=== PATIENT | male | born 1960 | race Caucasian/White ===

== ENCOUNTER 2016-10-05 23:34 | Inpatient (IN) | payer MEDICARE ==
--- NOTE | ~2016-10-05 | DS ---
Unit #: [id number] #: [id number] Patient: KAMAR HERR [id number] [address] [place], [place] [address] [id number] I MR#: [id number] NAME: KAMAR HERR. ROOM: 333 Age: 56 Sex: M Admission Date: 10/06/2016 : 1960 Discharge Date: 10/09/2016 Attending Physician: Cedric Cartwright M.D. Primary Care Physician: Domo Cuello M.D. DISCHARGE SUMMARY PRINCIPAL DISCHARGE DIAGNOSES 1. Right frontal scalp abscess with methicillin-sensitive Staphylococcus aureus. 2. Status post incision and drainage of right frontal scalp abscess on 10/07/16. 3. 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 4. Hypothyroidism. 5. Hyponatremia. 6. Chronic low back pain. 7. History ofd hepatitis C. 8. Status post splenectomy. 9. Gastroesophageal reflux disease. 10. Hypertension. 11. Generalized anxiety disorder. 12. Osteoarthritis. 13. Hyperlipidemia. 14. History of alcohol abuse. PROCEDURES 1. PICC line placement 10/06/16. 2. I/D of right scalp abscess of 10/07/16. CONSULTANTS 1. [facility]. 2. Dr Lara. 3. Dr. Mcknight. REASON FOR HOSPITALIZATION The patient is a 56-year-old white male with a history of type 2 diabetes mellitus, peripheral neuropathy, chronic low back pain, hypertension, hyperlipidemia, hypothyroidism, previous splenectomy following trauma, history of hepatitis C, history of alcohol abuse, presented to the emergency room with a rapidly expanding right scalp abscess following an insect bite. He was afebrile. White count was quite elevated at 19.8. Sodium was low on admission at 129, blood sugar was 425 and the patient was admitted. HOSPITAL COURSE The patient was admitted to a regular bed. He was started on IV antibiotics. PICC line was placed for IV access. He was placed on Zosyn and vancomycin. I/D was consulted. [facility] was consulted. He underwent I/D on the , tolerated well, found to have Unit #: [id number] #: [id number] Patient: KAMAR HERR methicillin-sensitive Staphylococcus aureus. Antibiotics adjusted appropriately. Seen by Dr. Lara for pain control. Dressing changes were instituted. Patient refused VNA and was taught dressing changes himself which he said he had a live-in girlfriend that could take care of that. He was discharged home on the on a constant carb diet. He was to follow up with [facility] in three weeks. He was to follow up with his primary care physician in one week although he was just fired from his primary care physician. He was given the number for referral to a [facility]. His PICC line was discontinued. DISCHARGE MEDICATIONS 1. He was discharged home with a prescription for Keflex 500 mg one p.o. q.i.d. #44 for a full 14 day course per ID recommendations. He is also on: 2. Synthroid 88 mcg daily. 3. Protonix 40 mg daily. 4. OxyContin 30 mg b.i.d. 5. Oxycodone 10 mg b.i.d. p.r.n. 6. Lantus 45 units subcu b.i.d. 7. Humalog sliding scale a.c. and h.s. 8. Zestril 40 mg daily. 9. Lipitor 40 mg daily. 10. Colace 100 mg b.i.d. 11. Klonopin 1 mg p.o. q.h.s. p.r.n. for insomnia. 12. Lyrica 300 mg p.o. b.i.d. Dictated by... Nick Tierney M.D. PAT/ivelisse TD: 10/27/2016 16:18 JOB #: [id number] DISCHARGE SUMMARY Page 1 of 1 X Nick Tierney MD X DISCHARGE SUMMARY
--- NOTE | ~2016-10-05 | HP ---
Unit #: [id number] #: [id number] Patient: KAMAR HERR [id number] [address] [address] [id number] I MR#: [id number] NAME: KMAAR HERR. ROOM: 333 Age: 56 Sex: M Admission Date: 10/06/2016 : 1960 Attending Physician: Cedric Cartwright M.D. Primary Care Physician: Domo Cuello M.D. HISTORY AND PHYSICAL HISTORY OF PRESENT ILLNESS A 56-year-old white male with a history of chronic kidney disease, splenectomy, insulin-requiring type 2 diabetes mellitus, chronic low back pain, hypothyroidism, hypertension, generalized anxiety disorder, alcohol abuse, hepatitis C, gastroesophageal reflux disease, peripheral neuropathy, and hyponatremia, last admitted here in 2014 with community-acquired pneumonia, sepsis, and acute kidney injury, presented to the emergency room with four days of right frontal scalp abscess following an insect bite, insect not seen but felt and apparently crushed. Patient had a rapidly evolving abscess. He has already been seen by Infectious Disease and Surgery, started on vancomycin and Zosyn, and scheduled for surgery in the morning. Currently, he is awake, alert, oriented x3, and in no acute distress but complaining of some anxiety. Medication reconciliation has not been performed, so I have no idea what he is taking at home, and the patient is unaware. He apparently has had some issues with Dr. Cuello's office, his primary care physician, and has been discharged from their care, but has not found a new physician yet. In any case, he is being admitted for further evaluation and treatment for his right scalp abscess. PAST MEDICAL HISTORY 1. 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 2. Hypertension. 3. Hyperlipidemia. 4. Hypothyroidism. 5. Generalized anxiety disorder. 6. Hepatitis C. 7. Gastroesophageal reflux disease. 8. Chronic low back pain. 9. Generalized osteoarthritis. 10. Alcohol abuse. PAST SURGICAL HISTORY 1. Spinal fusion at L4-5. 2. Cholecystectomy. 3. Right rotator cuff repair. 4. Left total knee replacement. 5. Multiple ventral hernia repairs. 6. Traumatic splenectomy. ALLERGIES No known medical allergies. Unit #: [id number] #: [id number] Patient: KAMAR HERR MEDICATIONS Completely unknown at this point, although he is still taking insulin according to himself and has not run out of his medicines. At discharge two years ago in December 2014 he was on Lyrica 300 mg p.o. b.i.d., Klonopin 0.5 at bedtime p.r.n. for insomnia, Lopressor 50 mg b.i.d., Levemir 40 units subcutaneous b.i.d., OxyContin 30 mg p.o. b.i.d., Protonix 40 mg daily, Synthroid 100 mcg daily, and Humalog 15 units a.c. with meals. SOCIAL HISTORY Disabled, single, nonsmoker. Drinks six to eight beers three to four times weekly. No street drug use. FAMILY HISTORY Noncontributory. PHYSICAL EXAMINATION GENERAL: He is awake, alert, oriented x3, and in no acute distress. VITAL SIGNS: Afebrile since admission and on admission, pulse 77, respirations 16, blood pressure 152/82, and O2 saturation 99% on room air. HEENT: Unremarkable except for a golf ball size abscess which is open and draining. It has a 1 cm open area with purulent discharge and bleeding. NECK: Supple without any JVD, bruits, adenopathy, or thyromegaly. CHEST: Clear to auscultation. HEART: Regular rate and rhythm without any murmurs, rubs, or gallops. ABDOMEN: Soft, nondistended, and nontender, with positive bowel sounds and no hepatosplenomegaly. EXTREMITIES: No clubbing, cyanosis, or edema. GENITOURINARY/RECTAL: Deferred. NEUROLOGIC: Grossly intact. DIAGNOSTIC STUDIES LABORATORY: PT and PTT within normal limits. White count 19.8 with a left shift, hemoglobin 13, and platelets 443,000. CPK total was normal. Sodium was low at 129, blood sugar was 425, and alkaline phosphatase 121. Urinalysis greater than 1000 mL of glucose. Urine drug screen positive for opiates which of course the patient is on at home. IMPRESSION 1. Right scalp frontal area abscess per insect bite. 2. Insulin-requiring type 2 diabetes mellitus with peripheral neuropathy and history of nephropathy. 3. Hyperglycemia. 4. Hyponatremia. 5. Hypothyroidism. 6. Chronic low back pain. 7. Status post splenectomy following trauma. 8. History of hepatitis C. 9. Gastroesophageal reflux disease. 10. Hypertension. 11. Hyperlipidemia. 12. Generalized anxiety disorder. 13. Osteoarthritis. 14. Alcohol abuse. 15. Status post spinal fusion. 16. Status post cholecystectomy. PLAN Unit #: [id number] #: [id number] Patient: KAMAR HERR Continue current IV antibiotics. Will start lower extremity SCDs for DVT prophylaxis as he is scheduled for surgery in the morning. Will check his A1c and follow with sliding scale insulin. Try to get a medication reconciliation on his chart so I can review and resume. For now, use Xanax 0.25 t.i.d. p.r.n. for anxiety. He already has pain medicine ordered intravenously. Apparently, cultures were sent, but he had no CT scan or other x-rays of his skull in the ER, and I am not sure this is actually necessary at this point. A PICC line has been placed for better access. Further evaluation pending results of the above. Dictated by Nick Tierney M.D. PAT/darryl TD: 10/06/2016 19:45 JOB #: [id number] HISTORY AND PHYSICAL Page 1 of 1 X Nick Tierney MD X HISTORY AND PHYSICAL
--- NOTE | ~2016-10-05 | CO ---
Unit #: [id number] #: [id number] Patient: KAMAR HERR [id number] [place] [address] [facility]. [place], [place] [address] [id number] I MR#: [id number] NAME: KAMAR HERR. ROOM: 333 Age: 56 Sex: M Admission Date: 10/06/2016 : 1960 Attending Physician: Cedric Cartwright M.D. Primary Care Physician: Domo Cuello M.D. Consultation Date: 10/06/2016 CONSULTATION REPORT REASON FOR CONSULTATION Facial cellulitis and abscess. HISTORY OF PRESENT ILLNESS This is a 56-year-old gentleman with a history of uncontrolled diabetes, who was admitted with abscess on the right forehead, which started 3 to 4 days ago. It gradually progressed leading to more pain and redness and fever. He was hospitalized and found to have abscess. He was started on IV antibiotics and ID was consulted for further evaluation. The patient is currently stable. He is wide awake and alert, does not have any headache, but there is a facial pain at the site of an abscess. He denies any recent surgery, injury, or any puncture wounds in that area. He thinks he may have been bit by some insects, but he did not see the insect. He is currently on vancomycin and Zosyn. PAST MEDICAL HISTORY Type 2 diabetes with nephropathy and neuropathy, hypertension, hyperlipidemia, hypothyroidism, anxiety, hepatitis C, GERD, chronic back pain, alcohol abuse, and osteoarthrosis. PAST SURGICAL HISTORY Spinal fusion at L4-5, cholecystectomy, right rotator cuff repair, total knee replacement, ventral hernia repairs, and traumatic splenectomy. ALLERGIES None. HOME MEDICATIONS Reviewed. As far as antibiotics are concerned, he is on vancomycin and Zosyn. SOCIAL HISTORY He is disabled, single, nonsmoker. Drinks beer on a daily basis. No history of street drugs. FAMILY HISTORY Noncontributory. SYSTEMIC REVIEW Right frontal and parietal abscess with pain and redness in that area. Minimum drainage. There is no internal headache. There was some fever, but no chills. No cough, dysuria, abdominal pain, nausea, vomiting, or diarrhea. Unit #: [id number] #: [id number] Patient: KAMAR HERR PHYSICAL EXAMINATION GENERAL: Reveals middle-aged white male, who is awake and alert, in no acute distress. VITAL SIGNS: Stable. Temperature is 98, heart rate 80, respirations 18, blood pressure 150/80. HEENT: There is a 4 to 5 cm exuberant abscess and carbuncle on the right frontoparietal area. This looks necrotic area with surrounding cellulitis. No obvious drainage was noted. Oral hygiene is poor. NECK: Supple. There is no JVD or edema. LUNGS: Clear to percussion and auscultation. HEART: Sounds are normal. There are no murmurs. ABDOMEN: Obese, soft, nontender without organomegaly or ascites. Bowel sounds normal. NEUROLOGIC: Nonfocal. DIAGNOSTIC STUDIES LABORATORY RESULTS: White count is 19.8, hemoglobin 13, and platelets 443. Sodium 129, potassium 4, chloride 92, CO2 of 25, BUN 12, creatinine 0.7, glucose 425. Liver function tests are normal. Urinalysis shows glucosuria. There are no white cells. Drug screen positive for opiates. Cultures are pending. IMPRESSION Uncontrolled diabetes with right frontal temporal abscess and carbuncle with cellulitis likely Staph aureus. RECOMMENDATIONS I agree with vancomycin and Zosyn for now. The patient will need surgical debridement, therefore, I will consult Surgical Team. For the time being, we will continue same antibiotics and adjust once culture results are known. Further recommendation will follow. Dictated by... Melina Huerta/doug TD: 10/09/2016 23:29 JOB #: [id number] CONSULTATION REPORT Page 1 of 1 X Magdy Mcknight MD CONSULTATION REPORT
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
--- NOTE | ~2016-10-05 | A ---
[facility] Nutrition Therapy DATE: 10/07/16 Patient: KAMAR HERR Physician: EVER Address: [address] [facility] Room/Bed: [address] [place] [address], Zip: [place] [phone] Admit Date: 10/06/16 Date of : 56 Height: 5 10 Weight: 185 84 NUTRITIONAL ASSESSMENT: REASON: Diet Education 56 y/o male admitted for spider bite/facial cellulitis PMH: DM, hyperthyroidism, ETOH abuse Anthropometrics: 5'10", 185# (84 kg), BMI 30 Assessment: Chart reviewed, events noted. Mr. Herr is a pleasant 56 y/o with a PMH of T2DM. RD product marketing intern spoke with pt at bedside. Pt reports actively monitoring his diabetes, checking his blood sugar 3 x day. He states that he can tolerate eating a lot of carbs without having high sugars, but still tries hard to eat a healthy diet and have [address] RD product marketing intern provided written and verbal education on T2DM nutrition therapy and carbohydrate counting. RD product marketing intern encouraged pt to eat a consistent amount of carbs with each meal, and to not skip meals. Pt voiced several questions regarding how to avaoid hypoglycemic episodes and asked for ideas for healthy meals. RD product marketing intern addressed all questions. RD will remain available. Intervention: 1. Diabetic diet education Recommendations: 1. Remain compliant with consistent carbohydrate/diabetic diet. Respectfully, BAUTISTA LIM, product marketing intern Kathleen Morrissey RD, [facility] [facility] cc: client file
--- NOTE | ~2016-10-05 | OR ---
Unit #: [id number] #: [id number] Patient: KAMAR HERR [id number] [address] [address] [id number] I MR#: [id number] NAME: KAMAR HERR ROOM: [facility] Date of Procedure: 10/07/2016 Admission Date: 10/06/2016 Surgeon: Camilo Lomas III, M.D. : 1960 Attending Physician: Cedric Cartwright M.D. Primary Care Physician: Domo Cuello M.D. OPERATIVE REPORT ADDENDUM PREOPERATIVE DIAGNOSIS 5 cm necrotic abscess of the right temporal region. POSTOPERATIVE DIAGNOSIS 5 cm necrotic abscess of the right temporal region. PROCEDURE PERFORMED Sharp excisional debridement of 5 cm right temporal abscess. ANESTHESIA General. SPECIMEN Cultures and tissue sent to Pathology. COMPLICATIONS None apparent. ESTIMATED BLOOD LOSS Minimal. INDICATIONS FOR PROCEDURE This is a 56-year-old gentleman who has sustained some type of bite from an insect or spider in the right temporal region over the preceding 4 days, it has progressively enlarged and developed a necrotic. DICTATION ENDS HERE. Dictated by... Camilo Lomas III, M.D. VCL/modl TD: 10/08/2016 08:38 JOB #: [id number] Unit #: [id number] #: [id number] Patient: KAMAR HERR OPERATIVE REPORT Page 1 of 1 X Camilo Lomas III, MD PROCEDURE OPERATIVE NOTE
--- NOTE | ~2016-10-05 | OR ---
Unit #: [id number] #: [id number] Patient: KAMAR HERR [id number] [address] [place], [place] [address] [id number] I MR#: [id number] NAME: KAMAR HERR ROOM: [facility] Date of Procedure: 10/07/2016 Admission Date: 10/06/2016 Surgeon: Camilo Lomas III, M.D. : 1960 Attending Physician: Cedric Cartwright M.D. Primary Care Physician: Domo Cuello M.D. OPERATIVE REPORT CONTINUATION DESCRIPTION OF PROCEDURE After consent was obtained, the patient was brought to the operating room and placed in the supine position. General anesthetic was administered. His right temporal region was prepped and draped in standard surgical fashion. I sharply excised all the necrotic tissue and the perimeter ended up being 4 x 5 cm. I debrided this back to healthy tissue. I irrigated this wound and packed it with Betadine-soaked Kerlix gauze. Sterile dressing was then applied over that. He tolerated the procedure without any problems and returned to the recovery room in stable condition. Dictated by... Camilo Lomas III, M.D. VCL/doug TD: 10/08/2016 08:34 JOB #: [id number] OPERATIVE REPORT Page 1 of 1 X Camilo Lomas III, MD PROCEDURE OPERATIVE NOTE
--- NOTE | ~2016-10-05 | XA166 ---
[facility] A Service of [facility] & [facility] RADIOLOGY TEXT RESULTS PATIENT: KAMAR HERR [facility]- : 56 UNIT #: [id number] AGE: [address]: Cedric Cartwright MD SEX: M ORDER DR: [id number] [facility] [address] [facility]. [place], [place] [address] [id number] I MR#: [id number] Acc #: [id number] NAME: KAMAR HERR. : 1960 SEX: M STUDY DATE/TIME: 10/06/2016 14:08 UNIT: C3A U ROOM: [facility] STUDY DESCRIPTION: XA PICC Line Placement WO Port Attending Physician: Cedric Cartwright M.D. Ordering Physician: Josefa Peterson M.D. Primary Care Physician: Domo Cuello M.D. MEDICAL IMAGING REPORT This report is preliminary unless electronic signature is present EXAM Line placement under ultrasound fluoroscopy HISTORY Long-term IV access for antibiotic therapy PRE-PROCEDURE The procedure was explained to the patient and/or patient congressional representative including risks, benefits, potential complications and potential for alternative forms of treatment. Informed consent was obtained, and prior to initiating the procedure a formal timeout procedure was performed. PROCEDURE Using full standard sterile barrier technique, including caps, gowns, gloves, masks, as well as sterile skin preparation and standard sterile draping, the left arm was prepped and draped in the usual fashion, and real-time sterile ultrasound guidance was used to localize an arm vein and to confirm vessel patency. A hard copy ultrasound image was recorded. After local anesthesia with 1% Xylocaine, the vein was punctured using real-time sterile ultrasound guidance, and an 0.018 guidewire was advanced into the superior vena cava, using fluoroscopic guidance. A 5-Norwegian dual-lumen PICC was then measured and deployed with the tip positioned in the superior vena cava. Trim length is 37 cm The position of the line was documented with a radiographic image. The line was secured in place with an adhesive dressing and an antibiotic patch was applied. Total fluoro time was __ minutes. A single fluoroscopic spot image was obtained. IMPRESSION 1. Successful placement of a 5-Norwegian dual-lumen PowerPICC via the left arm under ultrasound and fluoroscopic guidance. The tip of the PICC is in good position in the superior vena cava. 2. A single fluoroscopic spot image was obtained. [facility] A Service of [facility] & [facility] RADIOLOGY TEXT RESULTS PATIENT: KAMAR HERR LOCATION: [facility] 333-01 : 56 UNIT #: [id number] AGE: [address]: Cedric Cartwright MD SEX: M ORDER DR: Exposure: 2 mGy air kerma Fluoroscopy time: 0.2 minutes. A single spot radiograph was obtained. The puncture is in the left basilic vein. Dictated by... Tyshawn Khanna M.D. THIS IS AN ELECTRONICALLY VERIFIED REPORT Tyshawn Khanna M.D. at 10/08/2016 7:14 AM KAMILLE/karen TD: 10/06/2016 17:15 JOB #: [id number] MEDICAL IMAGING REPORT Page 1 of 1 COPY
[~2016-10-05 23:34] MED LIST: ACETAMINOPHEN325 MG PO; ACETAMINOPHEN650 M1 PO; ALPRAZOLAM PO; AMBIEN PO; AMBIEN10 MG; AMBIEN10 MG PO; BACTRIM DS TABL1 TA1 PO; BACTRIM DS TABL1 TAB PO; BENICAR PO; BYETTA10 MCG/0.0 INJ; CECLOR500 MG PO; CIPRO PO; COLACE PO; CRESTOR PO; DIAZEPAM PO; DIAZEPAM10 MG PO; EFFER-K 10 MEQ10 MEQ; FISH OIL 1,0001 CAP PO; FLEXERIL PO; FLEXERIL10 M1 PO; FLEXERIL10 MG PO; GLIPIZIDE10 MG/BOTT PO; GLUCOTROL XL PO; HALCION PO; HUMALOG INSULIN SUBQ; HUMALOG100 U/M2 SQ; HUMALOG100 U/ML SUBQ; HYDROCODON-ACE1 EAC4 PO; HYDROCODON-ACE1 EAC5 PO; K-DUR10 MEQ PO; KCL PO; KEFLEX PO; KEFLEX500 M1 PO; KLONOPIN0.5 MG PO; LEVAQUIN250 MG PO; LEVEMIR; LEVEMIR FLEX PEN; LEVEMIR INSULIN SQ; LEVEMIR SUBQ; LEVEMIR100 U/ML; LEVEMIR100 U/ML SQ; LEVEMIR100 U/ML SUBQ; LEVOTHROID25 MCG PO; LIPITOR PO; LISINOPRIL PO; LOPRESSOR PO; LORTAB 7.5-5001 TAB PO; LYRICA; LYRICA PO; LYRICA300 MG PO; LYRICA75 MG PO; MEPHYTON5 MG PO; METOPROLOL PO; METOPROLOL SUCC50 MG PO; MILK THISTLE500 MG PO; MOBIC PO; MOBIC15 MG PO; MULTI-DAY VITAM1 TAB PO; MULTIPLE VITAMI1 T12 PO; NOVOLOG100 U/M3; NOVOLOG100 U/ML; NOVOLOG100 UNITS/ INJ; NUCYNTA100 MG PO; ONDANSETRON ODT4 MG PO; OPANA ER30 MG PO; OXYCODON HCL-1 UDTAB PO; OXYCODONE PO; OXYCONTIN; OXYCONTIN PO; OXYCONTIN10 MG PO; OXYCONTIN30 MG PO; OXYIR5 MG PO; PEPCID PO; PEPCID40 MG PO; PERCOCET 10/3251 TAB PO; PERCOCET10 PO; PHENERGAN PO; PHENERGAN25 MG; PHENERGAN25 MG PO; POTASSIUM CHLO10 MEQ PO; POTASSIUM40 MEQ/15; PREDNISONE PO; PREVACID PO; PRINIVIL40 MG; PRINIVIL40 MG PO; PROTONIX PO; PROTONIX20 MG DOB; PROTONIX20 MG PO; ROBAXIN500 MG PO; ROXICODONE5 MG PO; SYNTHROID PO; SYNTHROID0.05 MG PO; SYNTHROID0.1 MG; SYNTHROID0.1 MG PO; SYNTHROID25 MCG; THYROID MED PO; TRIGLIDE PO; VALIUM10 MG; VALIUM10 MG PO; VANCOMYCIN1.75 GM/50 IV; VIAGRA PO; VIAGRA50 MG PO; VIBRAMYCIN100 M1 PO; VISTARIL PO; VITAMIN D PO; VOLTAREN50 MG PO; ZESTRIL40 MG PO
[2016-10-06 01:13] LABS: BASOPHIL# 0.2 X10e3 (0-0.3); BASOPHIL% 1.2 % (0-2.5); DIFF IND YES; EOSINOPHIL# 0.1 X10e3 (0-0.7); EOSINOPHIL% 0.4 % (0.0-7.0); HEMATOCRIT 38.3 % (38.0-50.0); LYMPHOCYTE# 3.6 X10e3 (1.0-3.5); LYMPHOCYTE% 18.1 % (17.0-45.0); MEAN CELL VOLUME 94.1 FL (83-96); MEAN CORPUSCULAR HEMOGLOBIN 31.9 PG (28-34); MEAN CORPUSCULAR HGB CONC 33.9 g/dL (30-36); MEAN PLATELET VOLUME 8.2 FL (6.5-11.5); MONOCYTE# 1.4 X10e3 (0-1.0); MONOCYTE% 7.3 % (3.0-12.0); NEUTROPHIL# 14.5 X10e3 (1.5-7.1); PLATELET COUNT 443 X10e3 (140-420); RED BLOOD COUNT 4.07 X10e (3.90-5.60); RED CELL DISTRIBUTION WIDTH 12.7 % (11.0-15.5); WHITE BLOOD COUNT 19.8 X10e3 (4.0-10.5)
[2016-10-06 01:21] LABS: PARTIAL THROMBOPLASTIN TIME 29.2 SECONDS (23.5-31.3); PROTHROMBIN TIME (PATIENT) 10.9 SECONDS (9.6-11.5)
[2016-10-06 01:53] LABS: PLATELET ESTIMATE NORMAL (NORMAL)
[2016-10-06 01:54] LABS: POIKILOCYTOSIS SL; TEAR DROP CELLS PRESENT
[2016-10-06 01:56] LABS: ALBUMIN SERUM 3.5 g/dL (3.5-5.0); BILIRUBIN, DIRECT 0.1 mg/dL (0.0-0.2); BILIRUBIN,INDIRECT 0.5 mg/dL (0.0-0.9); BILIRUBIN,TOTAL 0.6 mg/dL (0.2-2.0); BUN/CREATININE RATIO 17.14; CREATININE SERUM 0.7 mg/dL (0.6-1.4); GLOM FILT RATE Estimated 104.1 mL/min (>60); PROTEIN TOTAL SERUM 8.2 g/dL (6.0-8.3)
[2016-10-06 03:40] LABS: URINE SOURCE CLEAN CATCH
[2016-10-06 03:46] LABS: URINE APPEARANCE CLEAR; URINE BILIRUBIN NEG (NEG); URINE BLOOD NEG (NEG); URINE COLOR YELLOW; URINE GLUCOSE >1000 MG/DL (NEG); URINE KETONE TRACE (NEG); URINE LEUKOCYTE ESTERASE NEG (NEG); URINE NITRATE NEG (NEG); URINE PH 7.5 (5-8); URINE PROTEIN NEG (NEG); URINE SPECIFIC GRAVITY 1.023 (1.003-1.035)
[2016-10-06 03:50] LABS: CULTURE INDICATED? NO
[2016-10-06 03:55] LABS: AMPHETAMINE NEG (NEG); BARBITURATES NEG (NEG); BENZODIAZEPINES NEG (NEG); COCAINE NEG (NEG); MARIJUANA NEG (NEG); OPIATES POS (NEG); TRICYCLIC ANTIDEPRESSANTS NEG (NEG); U METHADONE NEG (NEG)
[2016-10-06] MEDS ORDERED: LYRICA300 MG PO (18:08)
[2016-10-06] MEDS ORDERED: KLONOPIN1 MG PO (18:09)
[2016-10-06] MEDS ORDERED: OXYCODONE HCL10 MG PO (18:10)
[2016-10-06] MEDS ORDERED: LISINOPRIL PO (18:11)
[2016-10-06] MEDS ORDERED: OXYCONTIN30 MG PO (18:11)
[2016-10-06] MEDS ORDERED: LIPITOR40 MG PO (18:11)
[2016-10-06] MEDS ORDERED: LANTUS100 U/ML SUBQ (18:12)
[2016-10-06] MEDS ORDERED: SYNTHROID88 MCG PO (18:12)
[2016-10-06] MEDS ORDERED: PROTONIX PO (18:12)
[2016-10-06] MEDS ORDERED: HUMALOG100 UNIT/1 SUBQ (18:15)
[2016-10-07 06:13] LABS: HEMATOCRIT 33.2 % (38.0-50.0); HEMOGLOBIN 11.2 gm/dL (13.0-16.0); MEAN CELL VOLUME 93.5 FL (83-96); MEAN CORPUSCULAR HEMOGLOBIN 31.6 PG (28-34); MEAN CORPUSCULAR HGB CONC 33.8 g/dL (30-36); MEAN PLATELET VOLUME 7.6 FL (6.5-11.5); RED BLOOD COUNT 3.55 X10e (3.90-5.60); RED CELL DISTRIBUTION WIDTH 12.9 % (11.0-15.5); WHITE BLOOD COUNT 13.1 X10e3 (4.0-10.5)
[2016-10-07 06:56] LABS: BUN/CREATININE RATIO 18.33; CREATININE SERUM 0.6 mg/dL (0.6-1.4); GLOM FILT RATE Estimated 110.9 mL/min (>60); POTASSIUM 3.7 mmol/L (3.5-5.1)
[2016-10-08 07:59] LABS: HEMATOCRIT 34.8 % (38.0-50.0); HEMOGLOBIN 11.7 gm/dL (13.0-16.0); MEAN CELL VOLUME 94.6 FL (83-96); MEAN CORPUSCULAR HEMOGLOBIN 31.9 PG (28-34); MEAN CORPUSCULAR HGB CONC 33.7 g/dL (30-36); MEAN PLATELET VOLUME 8.2 FL (6.5-11.5); RED BLOOD COUNT 3.68 X10e (3.90-5.60); RED CELL DISTRIBUTION WIDTH 12.9 % (11.0-15.5); WHITE BLOOD COUNT 10.2 X10e3 (4.0-10.5)
[2016-10-09] MEDS ORDERED: KEFLEX500 M1 PO (11:01)
== END 2016-10-09 13:33 | disposition home or self-care (01) | DRG 571 ==
LOC: CED 23:34 → CEDOF 10-06 05:15 → C3A PCU 10-06 05:15 → CEDOF 10-06 05:39 → CED 10-06 05:39 → C3A PCU 10-06 05:39 → CEDOF 10-06 07:24 → C3A PCU 10-09 13:33
PROVIDERS: Internal Medicine; Physician Assistant Medical; Student in an Organized Health Care Education/Training Program; Surgery
PROC: 02HV33Z Insertion of Infusion Device into Superior Vena Cava, Percutaneous Approach (ICD-10-PCS; 2016-10-06)
PROC: B518YZA Fluoroscopy of Superior Vena Cava using Other Contrast, Guidance (ICD-10-PCS; 2016-10-06)
PROC: B548ZZA Ultrasonography of Superior Vena Cava, Guidance (ICD-10-PCS; 2016-10-06)
PROC: 0JB00ZZ Excision of Scalp Subcutaneous Tissue and Fascia, Open Approach (ICD-10-PCS; principal; 2016-10-07 10:30)
DX: L02.811 Cutaneous abscess of head [any part, except face] (principal); E87.1 Hypo-osmolality and hyponatremia; E11.21 Type 2 diabetes mellitus with diabetic nephropathy; E11.42 Type 2 diabetes mellitus with diabetic polyneuropathy; E11.65 Type 2 diabetes mellitus with hyperglycemia; E03.9 Hypothyroidism, unspecified; M54.5 Low back pain; B19.20 Unspecified viral hepatitis C without hepatic coma; K21.9 Gastro-esophageal reflux disease without esophagitis; I10 Essential (primary) hypertension; E78.5 Hyperlipidemia, unspecified; F41.1 Generalized anxiety disorder; M19.90 Unspecified osteoarthritis, unspecified site; F10.10 Alcohol abuse, uncomplicated; Z90.49 Acquired absence of other specified parts of digestive tract; L03.211 Cellulitis of face; L02.03 Carbuncle of face; A49.01 Methicillin susceptible Staphylococcus aureus infection, unspecified site
CPT/HCPCS: 36415; 76937; 77001; 80048; 80076; 80202; 80307; 81003; 82550; 82947; 83036; 85025; 85027; 85610; 85730; 87040; 87070; 87075; 87077; 87186; 87205; 88304; 96365; 96366; 96375; 99284; C1751; J1170; J1815; J1885; J2250; J2405; J2543; J3010; J3370

== ENCOUNTER 2016-10-12 10:02 | Inpatient (IN) | payer MEDICARE ==
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
--- NOTE | ~2016-10-12 | CR269 ---
[facility] A Service of [facility] RADIOLOGY TEXT RESULTS PATIENT: KAMAR HERR LOCATION: [facility] : 56 UNIT #: [id number] AGE: [address]: Camilo Lomas III, MD SEX: M ORDER DR: [id number] [id number] [facility]. [place], [place] [address] [id number] I MR#: [id number] Acc #: [id number] NAME: KAMAR HERR. : 1960 SEX: M STUDY DATE/TIME: 10/14/2016 12:52 UNIT: [facility] ROOM: [facility], [facility]1983 STUDY DESCRIPTION: CR Upper GI and SBFT Attending Physician: Camilo Lomas III, M.D. Ordering Physician: Nate Lozada M.D. Primary Care Physician: Nick Tierney M.D. MEDICAL IMAGING REPORT This report is preliminary unless electronic signature is present EXAM Upper GI series and small-bowel follow-through. INDICATION Nausea, vomiting, and generalized abdominal pain. Abnormal CT scan. FINDINGS UPPER GI SERIES: There is a normal mucosal pattern of the esophagus. There is no evidence of a stricture, mass effect, or a mass. There is occasional gastroesophageal reflux. 13 mm barium tablet swallowed without difficulty. Esophageal motility is within normal limits. Double contrast images of the stomach and proximal duodenum are within normal limits. There is no mass or mass effect. SMALL-BOWEL FOLLOW-THROUGH: Serial AP radiographs were obtained of the abdomen. The small bowel transit time is estimated at 2 hours 15 minutes. The small bowel is normal in caliber. The dilated proximal small bowel loops have resolved. No significant mucosal abnormalities. No stricture, mass, or extrinsic mass effect. Fluoroscopic time 2.9 minutes, 29 images acquired. IMPRESSION 1. Gastroesophageal reflux. 2. Resolved dilated loops of proximal small bowel. Normal small bowel transit time. Dictated by... Hernando Soliman M.D. [facility] A Service of [facility] RADIOLOGY TEXT RESULTS PATIENT: KAMAR HERR LOCATION: [facility] 233-01 : 56 UNIT #: [id number] AGE: [address]: Camilo Lomas III, MD SEX: M ORDER DR: THIS IS AN ELECTRONICALLY VERIFIED REPORT Hernando Soliman M.D. at 10/15/2016 7:42 AM BRANDON/rossana TD: 10/14/2016 17:22 JOB #: [id number] MEDICAL IMAGING REPORT Page 1 of 1 COPY
--- NOTE | ~2016-10-12 | CR4 ---
[facility] A Service of [facility] RADIOLOGY TEXT RESULTS PATIENT: KAMAR HERR LOCATION: [facility] : 56 UNIT #: [id number] AGE: [address]: Camilo Lomas III, MD SEX: M ORDER DR: [id number] [facility] [address] [facility]. [place], [place] [address] [id number] I MR#: [id number] Acc #: [id number] NAME: KAMAR HERR : 1960 SEX: M STUDY DATE/TIME: 10/13/2016 13:18 UNIT: [facility] ROOM: [facility] STUDY DESCRIPTION: CR Abdomen Flat Upright or Dec Attending Physician: Camilo Lomas III, M.D. Ordering Physician: Nate Lozada M.D. Primary Care Physician: Nick Tierney M.D. MEDICAL IMAGING REPORT This report is preliminary unless electronic signature is present EXAM Supine and upright abdomen. HISTORY Abdominal pain, nausea and vomiting x1 day. FINDINGS Supine and upright views of the abdomen demonstrates a nasogastric tube coiled within the stomach. Surgical clips are seen in the right upper quadrant, left upper quadrant as well as multiple ekaterina in the mid abdomen suggesting hernia repair. Postoperative changes are noted in the lumbar spine from posterior spinal fixation L3-L4, and L4-5 diskectomy with intervertebral spacer. Nonspecific bowel gas pattern with several mildly prominent left upper quadrant small bowel loops. No evidence of high-grade obstruction. No organomegaly. No abnormal masses. Contrast distends the bladder. IMPRESSION 1. Extensive postoperative changes of the abdomen and spine. 2. NG tube in satisfactory position. 3. Nonspecific bowel gas pattern with several mildly prominent left upper quadrant small bowel loops, but no evidence to suggest high-grade obstruction. 4. Contrast-filled bladder. Dictated by... Sue Musa M.D. THIS IS AN ELECTRONICALLY VERIFIED REPORT Sue Musa M.D. at 10/14/2016 2:47 PM AMBROSIOS/aryan [facility] A Service of [facility] RADIOLOGY TEXT RESULTS PATIENT: KAMAR HERR LOCATION: [facility] 233-01 : 56 UNIT #: [id number] AGE: [address]: Camilo Lomas III, MD SEX: M ORDER DR: TD: 10/13/2016 22:16 JOB #: [id number] MEDICAL IMAGING REPORT Page 1 of 1 COPY
--- NOTE | ~2016-10-12 | DS ---
Unit #: [id number] #: [id number] Patient: KAMAR EHRR [id number] [address] [place], [place] [address] [id number] I MR#: [id number] NAME: KAMAR HERR. ROOM: 233 Age: 56 Sex: M Admission Date: 10/12/2016 : 1960 Discharge Date: 10/15/2016 Attending Physician: Camilo Lomas III, M.D. Primary Care Physician: Nick Tierney M.D. DISCHARGE SUMMARY DISCHARGE DIAGNOSES 1. Partial small bowel obstruction. 2. Right lateral scalp abscess, status post debridement. 3. Diabetes mellitus. 4. Hypertension. OPERATIVE PROCEDURES None. DISCHARGE MEDICATIONS Home medication. HISTORY OF PRESENT ILLNESS/HOSPITAL COURSE 56-year-old white male with mid epigastric/abdominal pain, nausea, vomiting, status post debridement of right forehead. He appeared that he had a bowel obstruction. This appears to be partial. He had a small bowel follow through which showed resolution of it within 48 hours. We are increasing his diet. Hopefully, this will continue to be resolved and we will see the patient back in the office in 8-10 days to also take a look at his right forehead. Dictated by... Nate Lozada M.D. CORNELL/mckay TD: 10/15/2016 12:49 JOB #: [id number] DISCHARGE SUMMARY Page 1 of 1 X Nate Lozada MD X DISCHARGE SUMMARY
--- NOTE | ~2016-10-12 | CT2 ---
[facility] A Service of [facility] RADIOLOGY TEXT RESULTS PATIENT: KAMAR HERR LOCATION: C2A 233-01 : 56 UNIT #: [id number] AGE: [address]: Camilo Lomas III, MD SEX: M ORDER DR: [id number] [facility] [address] [facility]. [place], [place] [address] [id number] I MR#: [id number] Acc #: [id number] NAME: KAMAR HERR : 1960 SEX: M STUDY DATE/TIME: 10/12/2016 21:48 UNIT: [facility] ROOM: [facility] STUDY DESCRIPTION: CT Abd and Pelv W Cont Attending Physician: Camilo Lomas III, M.D. Ordering Physician: Camilo Lomas III, M.D. Primary Care Physician: Nick Tierney M.D. MEDICAL IMAGING REPORT This report is preliminary unless electronic signature is present EXAM Abdomen and pelvis CT, 10/12 at 21:48 INDICATIONS Nausea and vomiting status post recent surgery. TECHNIQUE Axial images were obtained through the abdomen and pelvis following IV contrast administration. Multiplanar reformats were obtained. Comparison made with 06/17/2014. This CT exam was performed with one or more of the following radiation dose reduction techniques: Automatic exposure control, adjustment of mA and/or kV according to patient size, and iterative reconstruction. FINDINGS ABDOMEN: Lung bases are clear. Tip of the NG tube is in the proximal stomach. Consider advancing the NG tube at least 5 cm, if not 10. Spleen is surgically absent. There is a wedge-shaped area of low attenuation in the right hepatic lobe which extends out to the capsule. It covers a length of at least 8.8 cm. Given its configuration, this could certainly reflect an hepatic infarct in the appropriate clinical setting. This does not have the typical appearance of fatty infiltration. The remainder of the liver is normal. Gallbladder is surgically absent. No biliary obstruction. There are multiple distended small bowel loops without bowel wall thickening. Some of the loops in the left upper quadrant measure up to 5.5 cm in diameter. This is compatible with a small bowel obstruction. Visualized colon is grossly normal. No fluid collections are seen. Seroma associated with ventral abdominal wall repair is again seen. It does measure somewhat smaller, now measuring about 6.7 x 1.2 cm where it was previously 7.3 x 2.0 cm. PELVIS: The appendix is normal. The lower colon is normal as well. The distal ileum is completely decompressed. The transition zone is probably STS. [facility] A Service of [facility] RADIOLOGY TEXT RESULTS PATIENT: KAMAR HERR LOCATION: C2A 233-01 : 56 UNIT #: [id number] AGE: [address]: Camilo Lomas III, MD SEX: M ORDER DR: in the anterior pelvis, near the patient's mesh, and this would suggest adhesions as a cause for small bowel obstruction. Urinary bladder normal. There is an old right posterior twelfth rib fracture. Patient is status post lumbar fusion. IMPRESSION 1. Small bowel obstruction with an apparent transition zone in the anterior mid abdomen, near the patient's mesh, suggesting adhesions. The distal ileum is completely decompressed. The colon and appendix are normal. 2. Wedge-shaped area of low attenuation in the right lobe of the liver, suspicious for hepatic infarct. This does not have the typical appearance of fatty infiltration and was not present on the patient's study from 2014. 3. NG tube tip in the proximal stomach. Consider advancing the tube 5-10 cm. 4. Slight decrease in size in a ventral wall seroma associated with the patient's mesh. STAT * RESULT Dictated by... Domo Johnson Jr., M.D. THIS IS AN ELECTRONICALLY VERIFIED REPORT Domo Johnson Jr., M.D. at 10/13/2016 6:01 AM AYLIN/harjinder TD: 10/13/2016 00:16 JOB #: [id number] MEDICAL IMAGING REPORT Page 1 of 1 COPY
[~2016-10-12 10:02] MED LIST changes: +HUMALOG100 UNIT/1 SUBQ; +KLONOPIN1 MG PO; +LANTUS100 U/ML SUBQ; +LIPITOR40 MG PO; +OXYCODONE HCL10 MG PO; +SYNTHROID88 MCG PO
[2016-10-12 11:13] LABS: HEMATOCRIT 39.5 % (38.0-50.0); HEMOGLOBIN 13.2 gm/dL (13.0-16.0); MEAN CELL VOLUME 95.3 FL (83-96); MEAN CORPUSCULAR HEMOGLOBIN 31.8 PG (28-34); MEAN CORPUSCULAR HGB CONC 33.3 g/dL (30-36); MEAN PLATELET VOLUME 8.1 FL (6.5-11.5); RED BLOOD COUNT 4.15 X10e (3.90-5.60); WHITE BLOOD COUNT 21.1 X10e3 (4.0-10.5)
[2016-10-12 12:02] LABS: ALBUMIN SERUM 3.9 g/dL (3.5-5.0); BILIRUBIN,TOTAL 0.7 mg/dL (0.2-2.0); GLOM FILT RATE Estimated 82.6 mL/min (>60); POTASSIUM 4.1 mmol/L (3.5-5.1)
[2016-10-13 06:59] LABS: HEMATOCRIT 39.6 % (38.0-50.0); HEMOGLOBIN 13.2 gm/dL (13.0-16.0); MEAN CELL VOLUME 94.5 FL (83-96); MEAN CORPUSCULAR HEMOGLOBIN 31.5 PG (28-34); MEAN CORPUSCULAR HGB CONC 33.3 g/dL (30-36); RED BLOOD COUNT 4.19 X10e (3.90-5.60); RED CELL DISTRIBUTION WIDTH 12.9 % (11.0-15.5); WHITE BLOOD COUNT 22.2 X10e3 (4.0-10.5)
[2016-10-13 07:50] LABS: ALBUMIN SERUM 3.8 g/dL (3.5-5.0); BILIRUBIN,TOTAL 0.8 mg/dL (0.2-2.0); CALCIUM SERUM 8.7 mg/dL (8.4-10.2); GLOM FILT RATE Estimated 82.6 mL/min (>60); PROTEIN TOTAL SERUM 8.7 g/dL (6.0-8.3)
[2016-10-14 05:29] LABS: HEMATOCRIT 34.8 % (38.0-50.0); HEMOGLOBIN 11.5 gm/dL (13.0-16.0); MEAN CELL VOLUME 95.8 FL (83-96); MEAN CORPUSCULAR HEMOGLOBIN 31.7 PG (28-34); MEAN CORPUSCULAR HGB CONC 33.1 g/dL (30-36); MEAN PLATELET VOLUME 7.9 FL (6.5-11.5); RED BLOOD COUNT 3.63 X10e (3.90-5.60); RED CELL DISTRIBUTION WIDTH 12.9 % (11.0-15.5); WHITE BLOOD COUNT 19.4 X10e3 (4.0-10.5)
[2016-10-14 06:19] LABS: BUN/CREATININE RATIO 33.75; CALCIUM SERUM 8.1 mg/dL (8.4-10.2); CREATININE SERUM 0.8 mg/dL (0.6-1.4); GLOM FILT RATE Estimated 98.5 mL/min (>60); POTASSIUM 4.9 mmol/L (3.5-5.1)
[2016-10-15 06:34] LABS: HEMOGLOBIN 12.1 gm/dL (13.0-16.0); MEAN CELL VOLUME 95.1 FL (83-96); MEAN CORPUSCULAR HEMOGLOBIN 31.2 PG (28-34); MEAN CORPUSCULAR HGB CONC 32.8 g/dL (30-36); RED BLOOD COUNT 3.89 X10e (3.90-5.60); WHITE BLOOD COUNT 20.5 X10e3 (4.0-10.5)
[2016-10-15 07:40] LABS: BUN/CREATININE RATIO 14.28; CALCIUM SERUM 8.7 mg/dL (8.4-10.2); CREATININE SERUM 0.7 mg/dL (0.6-1.4); GLOM FILT RATE Estimated 104.1 mL/min (>60); POTASSIUM 4.3 mmol/L (3.5-5.1)
== END 2016-10-15 09:55 | disposition home or self-care (01) | DRG 389 ==
LOC: CED 10:02 → CEDOF 10:52 → C2A 10:52 → CEDOF 17:41 → CED 17:41 → CEDOF 18:49 → C2A 18:49
PROVIDERS: Surgery
PROC: 0D9670Z Drainage of Stomach with Drainage Device, Via Natural or Artificial Opening (ICD-10-PCS; principal; 2016-10-12)
DX: K56.60 Unspecified intestinal obstruction (principal); L02.811 Cutaneous abscess of head [any part, except face]; E11.21 Type 2 diabetes mellitus with diabetic nephropathy; E11.40 Type 2 diabetes mellitus with diabetic neuropathy, unspecified; E87.1 Hypo-osmolality and hyponatremia; E11.22 Type 2 diabetes mellitus with diabetic chronic kidney disease; Z79.4 Long term (current) use of insulin; E03.9 Hypothyroidism, unspecified; F41.1 Generalized anxiety disorder; K21.9 Gastro-esophageal reflux disease without esophagitis; B19.20 Unspecified viral hepatitis C without hepatic coma; E78.5 Hyperlipidemia, unspecified; M15.9 Polyosteoarthritis, unspecified; F10.10 Alcohol abuse, uncomplicated; B95.61 Methicillin susceptible Staphylococcus aureus infection as the cause of diseases classified elsewhere; E11.65 Type 2 diabetes mellitus with hyperglycemia; I10 Essential (primary) hypertension; E86.0 Dehydration
CPT/HCPCS: 74020; 74177; 74245; 80048; 80053; 82150; 82947; 83690; 85027; C9113; J0690; J1815; J2060; J2270; J2405; J2550; Q9967